=== PATIENT | female | born 1955 | race Two or more races ===

== ENCOUNTER 2020-10-31 07:41 | Outpatient (CLI) | payer OTHER | END 2020-10-31 07:45 | disposition home or self-care (01) | LOC: TOM 07:41 | PROVIDERS: ATTEND Obstetrics & Gynecology Gynecology | DX: K57.92 Diverticulitis of intestine, part unspecified, without perforation or abscess without bleeding (principal); Z12.11 Encounter for screening for malignant neoplasm of colon; D12.8 Benign neoplasm of rectum; K56.600 Partial intestinal obstruction, unspecified as to cause; K57.30 Diverticulosis of large intestine without perforation or abscess without bleeding ==

== ENCOUNTER 2024-06-28 07:14 | Outpatient (CLI) | payer OTHER | END 2024-06-28 07:19 | disposition home or self-care (01) | LOC: TOM 07:14 | PROVIDERS: ATTEND Internal Medicine Gastroenterology | DX: K57.30 Diverticulosis of large intestine without perforation or abscess without bleeding (principal); Z86.0100 Personal history of colon polyps, unspecified; K56.600 Partial intestinal obstruction, unspecified as to cause ==

== ENCOUNTER 2024-10-06 14:24 | Outpatient (CLI) | payer OTHER ==
[2024-10-06 15:12] LABS: CREATININE SERUM 0.99 mg/dL (0.55-1.02)
== END 2024-10-06 14:30 | disposition home or self-care (01) ==
LOC: LAB 14:24
DX: K57.30 Diverticulosis of large intestine without perforation or abscess without bleeding (principal)